=== PATIENT | male | born 1990 | race Caucasian/White ===

== ENCOUNTER 2022-01-14 16:50 | Emergency (ER) | payer OTHER ==
[2022-01-14 17:02] VITALS: BMI 26.0
[2022-01-14 19:03] LABS: BASO % 0.1 % (0-2.0); EOS % 0.1 % (0-4.5); HEMATOCRIT 42.4 % (35.4-49); HEMOGLOBIN 14.7 GM/dL (11.7-16.9); LYMPH % 8.3 % (8-40); MCH 28.9 pg (25.7-33.7); MCHC 34.8 g/dl (32.0-35.9); MEAN CELL VOLUME 83.2 fl (80-96); MEAN PLT VOLUME 7.2 fl (7.5-11.1); MONO % 1.7 % (3.8-10.2); NEUT % 89.8 % (42.8-82.8); PLATELET COUNT 284 10^3/uL (134-434); RDW 13.1 % (11.9-15.9); WHITE BLOOD COUNT 14.6 K/mm3 (4.0-10.0)
[2022-01-14 19:25] LABS: BLOOD UREA NITROGEN 8.8 mg/dL (7-18); CALCIUM 9.6 mg/dL (8.5-10.1)
[2022-01-14 19:28] LABS: CREATININE 0.7 mg/dL (0.55-1.3)
[2022-01-14 19:30] LABS: BILIRUBIN,TOTAL 0.4 mg/dL (0.2-1); TOT PROT 8.2 g/dl (6.4-8.2)
[2022-01-14 21:13] VITALS: BP 100/67; PULSE 86; TEMP 98.2
== END 2022-01-14 22:45 | disposition home or self-care (01) ==
LOC: JER 16:50
DX: R07.0 Pain in throat (principal); R09.89 Other specified symptoms and signs involving the circulatory and respiratory systems
CPT/HCPCS: 36415; 70491-TC; 80053; 85025; 99285-25; Q9967